=== PATIENT | male | born 1960 ===

== ENCOUNTER 2017-09-02 12:21 | Emergency (ER) | payer SELFPAY ==
[2017-09-02 12:36] VITALS: BP 155/89; PULSE 61; RESP 18; TEMP 97.9; O2SAT 96; BMI 28.1
[2017-09-02] MEDS ORDERED: Sodium Chloride 0.9% 1,000 ML IV STA (12:50)
--- NOTE | 2017-09-02 12:53 | ED PDOC ---
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 Nausea, but no vomiting or diarrhea. No genitourinary symptoms. He has never experienced this previously. No fever or chills. No injury or trauma. Past Medical History - Cardiac Hx Cardiac Disorders: Yes Hx Hypertension: Yes - Pulmonary Hx Respiratory Disorders: No - Neurological Hx Neurological Disorder: No - HEENT Hx HEENT Disorder: (glasses) - Renal Hx Renal Disorder: No - Endocrine/Metabolic Hx Endocrine Disorders: Yes Hx Diabetes Mellitus Type 2: Yes - Hematological/Oncological Hx Blood Disorders: No - Integumentary Hx Dermatological Disorder: No - Musculoskeletal/Rheumatological Hx Musculoskeletal Disorders: No - Gastrointestinal Hx Gastrointestinal Disorders: No - Genitourinary/Gynecological Hx Genitourinary Disorders: No - Psychiatric Hx Psychophysiologic Disorder: No Hx Substance Use: No Family/Social History - Physician Review Nursing Documentation Reviewed: Yes Family/Social History: Unknown Family HX Smoking Status: Never Smoked Hx Alcohol Use: No Hx Substance Use: No Allergies/Home Meds Allergies/Adverse Reactions: Allergies No Known Allergies Allergy (Verified 09/02/17 12:36) Review of Systems - Physician Review All systems were reviewed & negative as marked: Yes Physical Exam Vital Signs Temp Pulse Resp BP Pulse Ox 09/02/17 12:31 97.9 F 61 18 155/89 H 96 Temperature: Afebrile Blood Pressure: Hypertensive Pulse: Regular Respiratory Rate: Normal Appearance: Positive for: Well-Appearing, Non-Toxic, Uncomfortable Pain Distress: Moderate Mental Status: Positive for: other (Awake alert and uncomfortable) - Systems Exam Head: Present: Atraumatic, Normocephalic Pupils: Present: PERRL Extroacular Muscles: Present: EOMI Conjunctiva: Present: Normal Mouth: Present: Moist Mucous Membranes Pharnyx: No: ERYTHEMA, EXUDATE, TONSILS ENLARGED Neck: Present: Normal Range of Motion Respiratory/Chest: Present: Clear to Auscultation, Good Air Exchange. No: Respiratory Distress, Accessory Muscle Use Cardiovascular: Present: Regular Rate and Rhythm, Normal S1, S2. No: Murmurs Abdomen: Present: Normal Bowel Sounds, Other (No CVA tenderness). No: Tenderness, Distention, Peritoneal Signs, Rebound, Guarding Back: No: CVA Tenderness Upper Extremity: Present: Normal Inspection. No: Cyanosis, Edema Lower Extremity: Present: Normal Inspection. No: Edema Neurological: Present: GCS=15, CN II-XII Intact, Speech Normal Skin: Present: Warm, Dry, Normal Color. No: Rashes Medical Decision Making ED Course and Treatment: 09/02/17 14:[address] Sympt[address] scan is read by the radiologist shows a 2 mm stone. Patient will be discharged home accompanied by his daughter to follow up with urologist as an outpatient. Follow up in ER as needed. - Lab Interpretations Lab Results: 09/02/17 12:50 09/02/17 12:50 Lab Results 09/02/17 12:50: Sodium 140, Potassium 3.8, Chloride 104, Carbon Dioxide 26, Anion Gap 14, BUN 19, Creatinine 1.0, Est GFR ( Amer) > 60, Est GFR (Non- Af Amer) > 60, Random Glucose 193 H, Calcium 9.4, Total Bilirubin 0.6, AST 44, ALT 72 H, Alkaline Phosphatase 65, Total Protein 7.6, Albumin 4.3, Globulin 3.3 , Albumin/Globulin Ratio 1.3, Lipase 71 09/02/17 12:50: Urine Color Yellow, Urine Appearance Clear, Urine pH 6.0, Ur Specific [place] >= 1.030, Urine Protein 30 H, Urine Glucose (UA) Negative, Urine Ketones Trace H, Urine Blood Large H, Urine Nitrate Negative, Urine Bilirubin Negative, Urine Urobilinogen 0.2, Ur Leukocyte Esterase Negative, Urine RBC Tntc, Urine WBC 0 - 2, Ur Epithelial Cells 0 - 2, Urine Bacteria Few 09/02/17 12:50: APTT 31.1 09/02/17 12:50: WBC 8.9, RBC 4.51, Hgb 14.2, Hct 40.5 L, MCV 89.8, MCH 31.5, MCHC 35.1, RDW 13.1, Plt Count 185, MPV 11.8 H, Gran % 82.5 H, Lymph % (Auto) 11.3 L, Starr % (Auto) 5.2, Eos % (Auto) 0.8 L, Baso % (Auto) 0.2, Gran # 7.31 H , Lymph # 1.0 L, Starr # 0.5, Eos # 0.1, Baso # 0.02 - RAD Interpretation Radiology Orders: 09/02/17 12:50 ABD & PELVIS W/O PO OR IV CONT [CT] Stat - Medication Orders Current Medication Orders: Discontinued Medications Sodium Chloride (Sodium Chloride 0.9%) 1,000 mls @ 1,000 mls/hr IV .Q1H STA Stop: 09/02/17 13:49 Last Admin: 09/02/17 13:22 Dose: 1,000 mls/hr eMAR Start Stop Document 09/02/17 13:22 SRE (Rec: 09/02/17 13:22 SRE [email or web address]) Intravenous Solution Start Date 09/02/17 Start Time 13:00 End Date 09/02/17 End time 14:00 Total Infusion Time 60 Ketorolac Tromethamine (Toradol) 30 mg IVP STAT STA Stop: 09/02/17 12:51 Last Admin: 09/02/17 13:23 Dose: 30 mg MAR Pain Assessment Document 09/02/17 13:23 SRE (Rec: 09/02/17 13:23 [email or web address] Pain Reassessment Is this a pain reassessment? Yes Sleep Is patient sleeping during reassessment? No Presence of Pain Presence of Pain Yes Pain Scale Used Pain Scale Used Numeric Location Left, Right or Bilateral Right Pain Location Body Site Abdomen Description Description Constant IVP Administration Document 09/02/17 13:23 SRE (Rec: 09/02/17 13:23 [email or web address] Charges for Administration # of IVP Administrations 1 Ondansetron HCl (Zofran Inj) 4 mg IVP STAT STA Stop: 09/02/17 12:51 Last Admin: 09/02/17 13:23 Dose: 4 mg IVP Administration Document 09/02/17 13:23 SRE (Rec: 09/02/17 13:23 [email or web address] Charges for Administration # of IVP Administrations 1 Disposition/Present on Arrival - Present on Arrival Any Indicators Present on Arrival: No History of DVT/PE: No History of Uncontrolled Diabetes: No Urinary Catheter: No History of Decub. Ulcer: No History Surgical Site Infection Following: None - Disposition Have Diagnosis and Disposition been Completed?: Yes Diagnosis: Renal colic on right side, Kidney stone on right side Disposition: HOME/ ROUTINE Disposition Time: 14:58 Patient Plan: Discharge Condition: IMPROVED Discharge Instructions (ExitCare): Renal Colic (ED), Kidney Stones (ED) Additional Instructions: Increase fluids. Follow-up with urologist. Prescriptions: oxyCODONE/Acetaminophen [Percocet 5/325 mg Tab] 1 ea PO Q6 #15 tab Ondansetron [Zofran Odt] 4 mg SL Q6 #20 odt Referrals: Jose Garcia MD [Staff Provider] - Follow up with primary Forms: [facility] (Danish), WORK NOTE
[2017-09-02 13:01] LABS: BASO # 0.02 K/mm3 (0.0-2.0); BASO % 0.2 % (0.0-3.0); EOS # 0.1 (0.0-0.7); EOS % 0.8 % (1.5-5.0); GRAN # 7.31 (1.4-6.5); GRAN % 82.5 % (50.0-68.0); HEMOGLOBIN 14.2 g/dL (14.0-18.0); LYMPH % 11.3 % (22.0-35.0); MEAN CELL VOLUME 89.8 fl (80.0-105.0); MEAN CORPUSCULAR HEMOGLOBIN 31.5 pg (25.0-35.0); MEAN CORPUSCULAR HGB CONC 35.1 g/dl (31.0-37.0); MEAN PLATELET VOLUME 11.8 fl (7.0-11.0); MONO # 0.5 (0.1-0.6); MONO % 5.2 % (1.0-6.0); RBC 4.51 10^6/uL (3.5-6.1); RED CELL DISTRIBUTION WIDTH 13.1 % (11.5-14.5); URINE BILIRUBIN NEGATIVE (NEGATIVE); URINE BLOOD LARGE (NEGATIVE); URINE GLUCOSE (UA) NEGATIVE (NEGATIVE); URINE LEUKOCYTE ESTERASE NEGATIVE Leu/uL (NEGATIVE); URINE NITRATE NEGATIVE (NEGATIVE); URINE PROTEIN 30 mg/dL (<30 mg/dL); URINE UROBILINOGEN 0.2 E.U./dL (<1 E.U./dL); WHITE BLOOD COUNT 8.9 10^3/ul (4.5-11.0)
[2017-09-02 13:03] LABS: URINE APPEARANCE CLEAR (CLEAR); URINE COLOR YELLOW (YELLOW)
[2017-09-02 13:10] LABS: ALB/GLOB RATIO 1.3 (1.1-1.8); ALBUMIN 4.3 g/dL (3.0-4.8); ALT/SGPT 72 U/L (7-56); AST/SGOT 44 U/L (17-59); BLOOD UREA NITROGEN 19 mg/dL (7-21); CALCIUM 9.4 mg/dL (8.4-10.5); GFR AFRICAN-AMERICAN > 60; GFR NON-AFRICAN AMERICAN > 60; LIPASE 71 U/L (23-300)
[2017-09-02 13:22] LABS: URINE BACTERIA FEW (NEG); URINE EPITHELIAL CELLS 0 - 2 /hpf (0-5); URINE RBC TNTC /hpf (0-2); URINE WBC 0 - 2 /hpf (0-6)
--- NOTE | 2017-09-02 14:47 | CT ---
PROCEDURE: CT Abdomen and Pelvis without intravenous contrast HISTORY: right stone run COMPARISON: None. TECHNIQUE: Without contrast.. Contrast Dose: Radiation dose: Total exam DLP = 694 mGy-cm. This CT exam was performed using one or more of the following dose reduction techniques: Automated exposure control, adjustment of the mA and/or kV according to patient size, and/or use of iterative reconstruction technique. FINDINGS: LOWER THORAX: Unremarkable. LIVER: Unremarkable. No gross lesion or ductal dilatation. GALLBLADDER AND BILE DUCTS: Unremarkable. PANCREAS: Unremarkable. No gross lesion or ductal dilatation. SPLEEN: Unremarkable. ADRENALS: Unremarkable. No mass. KIDNEYS AND URETERS: Mild right-sided hydronephrosis and hydroureter. 2 mm stone in the internal orifice of the right UVJ. Axial image 78 series 2 and coronal image 76 VASCULATURE: Unremarkable. No aortic aneurysm. BOWEL: Unremarkable. No obstruction. No gross mural thickening. APPENDIX: Unremarkable. Normal appendix. PERITONEUM: Unremarkable. No free fluid. No free air. LYMPH NODES: Unremarkable. No enlarged lymph nodes. BLADDER: Unremarkable. REPRODUCTIVE: Unremarkable. BONES: No acute fracture. OTHER FINDINGS: None. IMPRESSION: Mild right-sided hydronephrosis and hydroureter. 2 mm stone in the internal orifice of the right UVJ
== END 2017-09-02 15:00 | disposition home or self-care (01) ==
LOC: ED 12:21
DX: N20.0 Calculus of kidney (principal); I10 Essential (primary) hypertension; E11.9 Type 2 diabetes mellitus without complications
CPT/HCPCS: 74176; 80053; 81001; 83690; 85025; 85730; 96361; 96374; 96375; 99283; J1885; J2405; J7040